=== PATIENT | male | born 1990 | race Caucasian/White ===

== ENCOUNTER 2016-06-19 21:56 | Emergency (ER) | payer SELFPAY ==
[~2016-06-19] VITALS: Ht 172.7 cm; Wt 81.5 kg
[2016-06-19 22:03] VITALS: Ht 172.7 cm; Wt 81.5 kg
[2016-06-20] MEDS ORDERED: HYDROCODONE/APAP (5/325) TAB PO ONE (01:30)
--- NOTE | 2016-06-20 01:41 | ERD ---
ER Documentation Chief Complaint Date/Time DATE: 06/20/16 TIME: 01:39 Chief Complaint testicular pain and swelling,denies trauma HPI 26-year-old male presents to emergency department for complaints of right testicular pain and swelling started today. Patient describes the pain as sharp pain, 8/10 scale, accompanied with swelling. Patient denies any penile discharge. Patient did not have any new sexual partner, patient denies any abdominal pain, flank pain. Patient denies any fever or chills. Patient denies hematuria or dysuria. Patient did not take any medications other symptoms. ROS All systems reviewed and are negative except as per history of present illness. Medications Home Meds Reported Medications [none] Unknown Strength No Conflict Check 06/20/16 Allergies Allergies: Coded Allergies: No Known Allergy (Unverified , 06/19/16) PMhx/Soc Medical and Surgical Hx: pt denies Medical Hx, pt denies Surgical Hx Hx Alcohol Use: Yes (occasionally) Hx Substance Use: Yes (marijuana last used 06/19/2016) Hx Tobacco Use: Yes Smoking Status: Current every day smoker FmHx Family History: No coronary disease, No diabetes, No other Physical Exam Vitals Vital Signs Date Time Temp Pulse Resp B/P Pulse Ox O2 Delivery O2 Flow Rate FiO2 06/19/16 22:03 98.4 89 18 147/65 95 Physical Exam GENERAL: The patient is well developed and appropriate for usual state of health, in no apparent distress. CHEST: Clear to auscultation bilaterally. There are no rales, wheezes or rhonchi. HEART: Regular rate and rhythm. No murmurs, clicks, rubs or gallops. No S3 or S4. ABDOMEN: Soft, nontender and nondistended. Good bowel sounds. No rebound or guarding. No gross peritonitis. No gross organomegaly or masses. No Amor sign or McBurney point tenderness. BACK: No midline or flank tenderness. EXTREMITIES: Equal pulses bilaterally. There is no peripheral clubbing, cyanosis or edema. No focal swelling or erythema. Full range of motion. Grossly neurovascularly intact. NEURO: Alert and oriented. Cranial nerves 2-12 intact. Motor strength in all 4 extremities with 5/5 strength. Sensation grossly intact. Normal speech and gait. SKIN: There is no apparent rash or petechia. The skin is warm and dry. HEMATOLOGIC AND LYMPHATIC: There is no evidence of excessive bruising or lymphedema. No gross cervical, axillary, or inguinal lymphadenopathy. : Tenderness on palpation and right scrotal area, mild swelling noted, no penile discharge, no lesions noted in the genital area. Left scrotum is normal and nontender. Results 24 hrs Laboratory Tests Test 06/20/16 01:30 Urine Bilirubin NEGATIVE Urine Clarity CLEAR Urine Color LT. YELLOW Urine Glucose NEGATIVE% Urine Hemoglobin NEGATIVE Urine Ketones NEGATIVE Urine Leukocyte Esterase NEGATIVE Urine Nitrite NEGATIVE Urine Specific [place] 1.025 Urine Total Protein NEGATIVE Urine Urobilinogen 1.0 E.U./dL Urine pH 6.0 Current Medications Medications (Trade) Dose Ordered Sig/Malachi Route PRN Reason Start Time Stop Time Status Last Admin Dose Admin Acetaminophen/ Hydrocodone Bitart ([place] (5/325)) 1 tab ONCE ONCE PO 06/20/16 01:30 06/20/16 01:31 DC 06/20/16 01:33 Ceftriaxone Sodium (Rocephin) 250 mg ONCE ONCE IM 06/20/16 02:30 06/20/16 02:31 UNV Azithromycin (Zithromax) 1,000 mg ONCE ONCE PO 06/20/16 02:30 06/20/16 02:31 UNV Patient was given medication for pain here in emergency department, after treatment, patient verbalized feeling much better. Patient's pain is improved. Azithromycin and Rocephin was given here in emergency department for treatment for epididymitis is possibly caused by gonococcal infection. PROCEDURE: Scrotal ultrasound CLINICAL INDICATION: Right testicular pain TECHNIQUE: Scrotal ultrasound was performed with sagittal and transverse views. Delgado scale and color imaging was performed. Images were reviewed on high resolution PACS monitors. COMPARISON: None available FINDINGS: The right testicle measures 3.6 x 2.2 x 3.1 cm in dimension. There is normal size and echogenicity and morphology of the right testicle with normal blood flow. There is mild prominence of the right epididymal body and tail with hyperemia suggestive of epididymitis. No hydrocele is identified. Minimal right scrotal skin thickening is suggested. No mass or cyst or other abnormality is seen. There is no evidence for varicocele. The left testicle measures 3.8 x 2 x 2.6 cm in dimension. There is normal size and echogenicity and morphology of the left testicle with normal blood flow. The left epididymis is normal. No hydrocele is identified. The soft tissues are unremarkable. No mass or cyst or other abnormality is present. There is no evidence for a varicocele. IMPRESSION: Mild prominence of the right epididymal body and tail with hyperemia suggestive of epididymitis. Minimal right scrotal skin thickening suggested. No evidence of testicular torsion. RPTAT: HJES .Nick Willson MD, MD Date Time Electronically viewed and signed by .Nick Willson MD, MD on 06/20/2016 01:54 .S/ CC: EMELYN BENÍTEZ NP Procedures/MDM Medical decision making: Patient's right scrotal pain most likely consistent with epididymitis is seen in the ultrasound, no testicular torsion, no soft tissue abscess noted, no scrotal abscess noted, no symptoms of any cellulitis. No symptoms of sepsis at this time. Patient appears well and is hemodynamically stable. Patient was given IM Rocephin and azithromycin here in emergency department, will be sent home with ciprofloxacin and Pyridium [place] for severe pain, ibuprofen for mild to moderate pain, is advised to follow-up with primary doctor 2-3 days for reevaluation of symptoms, patient was advised to return to emergency department for any worsening symptoms. Departure Diagnosis: Primary Impression: Epididymitis Condition: Stable Patient Instructions: Epididymitis Additional Instructions: Patient was given IM Rocephin and azithromycin here in emergency department, will be sent home with ciprofloxacin and Pyridium, [place] for severe pain, and ibuprofen for mild to moderate pain, is advised to follow-up with primary doctor 2-3 days for reevaluation of symptoms, patient was advised to return to emergency department for any worsening symptoms. Have partner tested, complete course of treatment prior to sexual intercourse, do protected sex for least 2 weeks. EMELYN BENÍTEZ NP Jun 20, 2016 01:41
--- NOTE | 2016-06-20 01:55 | RADRPT ---
PROCEDURE: Scrotal ultrasound CLINICAL INDICATION: Right testicular pain TECHNIQUE: Scrotal ultrasound was performed with sagittal and transverse views. Delgado scale and co jewels imaging was performed. Images were reviewed on high resolution PACS monitors. COMPARISON: None available FINDINGS: The right testicle measures 3.6 x 2.2 x 3.1 cm in dimension. There is normal size and echogenicity a nd morphology of the right testicle with normal blood flow. There is mild prominence of the right ep ididymal body and tail with hyperemia suggestive of epididymitis. No hydrocele is identified. Minima l right scrotal skin thickening is suggested. No mass or cyst or other abnormality is seen. There i s no evidence for varicocele. The left testicle measures 3.8 x 2 x 2.6 cm in dimension. There is normal size and echogenicity and morphology of the left testicle with normal blood flow. The left epididymis is normal. No hydrocele is identified. The soft tissues are unremarkable. No mass or cyst or other abnormality is present . There is no evidence for a varicocele. IMPRESSION: Mild prominence of the right epididymal body and tail with hyperemia suggestive of epididymitis. Min imal right scrotal skin thickening suggested. No evidence of testicular torsion. RPTAT: HJES .Nick Willson MD, MD Date Time Electronically viewed and signed by .Nick Willson MD, on 06/20/2016 01:54 .S/
[2016-06-20 02:30] LABS: ADD UMIC NO; URINE BILIRUBIN (Dip) NEGATIVE (NEGATIVE); URINE BLOOD (Dip) NEGATIVE (NEGATIVE); URINE COLOR LT. YELLOW (YELLOW); URINE GLUCOSE (Dip) NEGATIVE (NEGATIVE); URINE KETONES (Dip) NEGATIVE (NEGATIVE); URINE LEUKOCYTE ESTERASE (Dip) NEGATIVE (NEGATIVE); URINE NITRITE (Dip) NEGATIVE (NEGATIVE); URINE TOTAL PROTEIN (Dip) NEGATIVE (NEGATIVE); URINE UROBILINOGEN (Dip) 1.0 E.U./dL (0.1-1.0)
[2016-06-20] MEDS ORDERED: CEFTRIAXONE 250 MG INJ IM ONE (02:30)
[2016-06-20] MEDS ORDERED: AZITHROMYCIN 250 MG TAB PO ONE (02:30)
[2016-06-20] MEDS ORDERED: PHEN-538 PO (02:44)
[2016-06-20] MEDS ORDERED: HYDR-906 PO (02:44)
[2016-06-20] MEDS ORDERED: CIPR500T4 PO (02:44)
[2016-06-20] MEDS ORDERED: IBUP-1542 PO (02:44)
== END 2016-06-20 03:35 | disposition home or self-care (01) ==
LOC: FTE 21:56
DX: N45.1 Epididymitis (principal); F17.210 Nicotine dependence, cigarettes, uncomplicated
CPT/HCPCS: 76870; 81003; 87591; J0696; 96372